=== PATIENT | female | born 1985 | race Caucasian/White ===

== ENCOUNTER 2018-04-05 22:51 | Emergency (ER) | payer MEDICAID ==
[~2018-04-05] VITALS: Ht 162.6 cm; Wt 104.8 kg
[~2018-04-05 22:51] MED LIST: ALBU8.5H8 INH; CLIN150C98 PO; IBUP-1986 PO; METO50TA17 PO; OXCA150T5 PO; OXCA300T4 PO
[2018-04-05 23:46] LABS: BASOPHILS % (AUTO) 0.2 % (0-1); EOSINOPHILS # (AUTO) 0.3 X10'3 (0-0.9); EOSINOPHILS % (AUTO) 4.5 % (0-6); HEMATOCRIT 43.5 % (35.0-45.0); HEMOGLOBIN 14.5 g/dl (12.0-16.0); LYMPHOCYTES % (AUTO) 26.3 % (21-51); MEAN CORPUSCULAR HGB CONC 33.3 % (33.0-36.5); MEAN CORPUSCULAR VOLUME 90.1 FL (78-98); MONOCYTES # (AUTO) 0.3 X10'3 (0-0.9); NEUTROPHILS # (AUTO) 4.9 X10'3 (1.8-7.7); PLATELET COUNT 300 X10'3 (140-440); RED BLOOD COUNT 4.83 X10'6 (4.20-5.60); RED CELL DISTRIBUTION WIDTH 14.7 % (11.5-14.5); WHITE BLOOD COUNT 7.6 X10'3 (4.5-11.0)
[2018-04-06 00:04] LABS: ALANINE AMINOTRANSFERASE 22 U/L (12-78); ALBUMIN 3.4 G/DL (3.4-5.0); ALBUMIN/GLOBULIN RATIO 0.9 (1.1-1.5); ALKALINE PHOSPHATASE 90 IU/L (46-116); ANION GAP 10 (8-16); ASPARTATE AMINO TRANSFERASE 15 U/L (10-37); BILIRUBIN,TOTAL 0.2 MG/DL (0.1-1.0); BLOOD UREA NITROGEN 12 MG/DL (7-18); BUN/CREATININE RATIO 14.5 (6.6-38.0); CALCIUM 8.9 MG/DL (8.5-10.1); CHLORIDE 109 MMOL/L (99-107); CREATININE 0.83 MG/DL (0.40-0.90); GLUCOSE 92 MG/DL (70-104); POTASSIUM 3.9 MMOL/L (3.5-5.1); SODIUM 147 MMOL/L (135-145); TOTAL CARBON DIOXIDE 28.1 MMOL/L (24-32); TOTAL PROTEIN 7.3 G/DL (6.4-8.2); eGFR 79 ML/MIN
[2018-04-06 00:05] LABS: ETHANOL 0.074 GM/DL (0.0-0.010)
[2018-04-06] MEDS ORDERED: normal saline 1000ML IV soln IVB ONE (00:05)
[2018-04-06] MEDS ORDERED: naloxone 0.4 mg/ml inj IV PRN (00:10)
[2018-04-06] MEDS ORDERED: haloperidol lactate 5mg/ml inj IM ONE ×2 (00:13→00:15)
[2018-04-06] MEDS ORDERED: diphenhydrAMINE 50 mg/ml inj ONE (00:13)
[2018-04-06] MEDS ORDERED: LORazepam 2 mg/ml vial ONE (00:14)
[2018-04-06] MEDS ORDERED: diphenhydrAMINE 50 mg/ml inj IM ONE (00:15)
[2018-04-06] MEDS ORDERED: LORazepam 2 mg/ml vial IM ONE ×2 (00:15→13:50)
[2018-04-06 00:25] LABS: ACETAMINOPHEN < 2.0 UG/ML (10-30)
[2018-04-06 01:30] LABS: URINE HCG NEGATIVE (NEG)
[2018-04-06 01:32] LABS: CLARITY,URINE CLEAR (Clear); COLOR,URINE YELLOW (Yellow); GLUCOSE, URINE NEGATIVE (Neg); KETONES,URINE NEGATIVE (Neg); LEUKOCYTE ESTERASE ,URINE NEGATIVE (Neg); NITRITES, URINE NEGATIVE (Neg); OCCULT BLOOD,URINE NEGATIVE (Neg); PROTEIN,URINE NEGATIVE (Neg); UROBILINOGEN,URINE 0.2 E.U/dL (0.2-1.0)
[2018-04-06 01:34] LABS: UA COLLECTION TYPE STRAIGHT CATH
[2018-04-06 01:35] LABS: URINE AMPHETAMINE SCREEN POSITIVE (Neg); URINE BARBITUATE SCREEN NEGATIVE (Neg); URINE BENZODIAZEPINES SCREEN POSITIVE (Neg); URINE CANNABINOID SCREEN POSITIVE (Neg); URINE COCAINE SCREEN NEGATIVE (Neg); URINE METHADONE SCREEN NEGATIVE (Neg); URINE OPIATE SCREEN NEGATIVE (Neg); URINE PHENCYCLIDINE SCREEN NEGATIVE (Neg)
[2018-04-06 09:19] LABS: ALBUMIN 2.7 G/DL (3.4-5.0); ANION GAP 7 (8-16); BLOOD UREA NITROGEN 11 MG/DL (7-18); BUN/CREATININE RATIO 13.8 (6.6-38.0); CHLORIDE 111 MMOL/L (99-107); GLUCOSE 155 MG/DL (70-104); POTASSIUM 3.8 MMOL/L (3.5-5.1); SODIUM 144 MMOL/L (135-145); TOTAL CARBON DIOXIDE 25.6 MMOL/L (24-32); eGFR 83 ML/MIN
[2018-04-06] MEDS ORDERED: albuterol 2.5 MG/3 ML nebule NEB PRN (13:55)
[2018-04-07] MEDS ORDERED: LORazepam 1 MG tablet PO ONE (02:25)
[2018-04-07] MEDS ORDERED: ipratropium/albuterol 3ml nebule NEB ONE (02:45)
[2018-04-07] MEDS ORDERED: ipratropium/albuterol 3ml nebule ONE (02:57)
[2018-04-07 07:46] VITALS: BP 121/75
[2018-04-07] MEDS ORDERED: METO-384 PO (10:45)
[2018-04-07] MEDS ORDERED: CLON0.1T20 PO (10:45)
[2018-04-07] MEDS ORDERED: GABA-530 PO (10:45)
[2018-04-07] MEDS ORDERED: TRAZ-146 PO (10:45)
[2018-04-07] MEDS ORDERED: ESCI10TA PO (10:45)
[2018-04-07] MEDS ORDERED: nicotine 7mg patch - 24hr TD SCH (11:40)
[2018-04-07] MEDS ORDERED: metoprolol tartrate 50mg tablet PO SCH (20:00)
[2018-04-07] MEDS ORDERED: cloNIDine 0.1 mg tablet PO SCH (21:00)
[2018-04-07] MEDS ORDERED: traZODone 50mg tablet PO SCH (21:00)
[2018-04-08] MEDS ORDERED: citalopram 20mg tablet PO SCH (08:00)
== END 2018-04-07 14:14 | disposition home or self-care (01) ==
LOC: ER 22:52
DX: R45.851 Suicidal ideations (principal); T50.902A Poisoning by unspecified drugs, medicaments and biological substances, intentional self-harm, initial encounter; F12.10 Cannabis abuse, uncomplicated; F10.129 Alcohol abuse with intoxication, unspecified; F15.10 Other stimulant abuse, uncomplicated; F11.10 Opioid abuse, uncomplicated; I10 Essential (primary) hypertension; F13.90 Sedative, hypnotic, or anxiolytic use, unspecified, uncomplicated; J45.909 Unspecified asthma, uncomplicated; F32.9 Major depressive disorder, single episode, unspecified; Z79.899 Other long term (current) drug therapy; Y92.89 Other specified places as the place of occurrence of the external cause
CPT/HCPCS: 36415; 80048; 80053; 80305; 80320; 80329; 81003; 81025; 85025; 94640; 94760; 96372; 99285; J2060; J1200; J1630

== ENCOUNTER 2018-07-01 09:07 | Emergency (ER) | payer MEDICAID ==
[~2018-07-01] VITALS: Ht 167.6 cm; Wt 102.0 kg
[~2018-07-01 09:07] MED LIST changes: -CLIN150C98 PO; +CLON0.1T20 PO; +ESCI10TA PO; +GABA-530 PO; -IBUP-1986 PO; +METO-384 PO; -METO50TA17 PO; -OXCA150T5 PO; -OXCA300T4 PO; +TRAZ-219 PO
[2018-07-01 09:46] LABS: BASOPHILS % (AUTO) 0.3 % (0-1); EOSINOPHILS # (AUTO) 0.3 X10'3 (0-0.9); EOSINOPHILS % (AUTO) 5.1 % (0-6); HEMATOCRIT 37.5 % (35.0-45.0); HEMOGLOBIN 12.7 g/dl (12.0-16.0); LYMPHOCYTES # (AUTO) 2.5 X10'3 (1.1-4.8); LYMPHOCYTES % (AUTO) 40.9 % (21-51); MEAN CORPUSCULAR HEMOGLOBIN 30.6 PG (27.0-31.0); MEAN CORPUSCULAR HGB CONC 33.9 % (33.0-36.5); MEAN CORPUSCULAR VOLUME 90.2 FL (78-98); MEAN PLATELET VOLUME 8.1 FL (7.4-10.4); MONOCYTES # (AUTO) 0.4 X10'3 (0-0.9); MONOCYTES % (AUTO) 6.8 % (2-12); NEUTROPHILS # (AUTO) 2.8 X10'3 (1.8-7.7); NEUTROPHILS % (AUTO) 46.9 % (42-75); PLATELET COUNT 234 X10'3 (140-440); RED BLOOD COUNT 4.16 X10'6 (4.20-5.60); RED CELL DISTRIBUTION WIDTH 14.1 % (11.5-14.5)
[2018-07-01 09:58] LABS: ALANINE AMINOTRANSFERASE 35 U/L (12-78); ALKALINE PHOSPHATASE 57 IU/L (46-116); ANION GAP 6 (8-16); ASPARTATE AMINO TRANSFERASE 24 U/L (10-37); BILIRUBIN,TOTAL 0.1 MG/DL (0.1-1.0); BLOOD UREA NITROGEN 15 MG/DL (7-18); BUN/CREATININE RATIO 18.5 (6.6-38.0); CHLORIDE 108 MMOL/L (99-107); CREATININE 0.81 MG/DL (0.40-0.90); GLUCOSE 109 MG/DL (70-104); POTASSIUM 3.9 MMOL/L (3.5-5.1); SODIUM 140 MMOL/L (135-145); TOTAL CARBON DIOXIDE 26.4 MMOL/L (24-32); TOTAL PROTEIN 6.1 G/DL (6.4-8.2); eGFR 81 ML/MIN
[2018-07-01 10:00] LABS: ACETAMINOPHEN < 2.0 UG/ML (10-30)
[2018-07-01 10:04] LABS: HCG SERUM QL NEGATIVE
[2018-07-01 10:29] LABS: URINE AMPHETAMINE SCREEN NEGATIVE (Neg); URINE BARBITUATE SCREEN NEGATIVE (Neg); URINE BENZODIAZEPINES SCREEN POSITIVE (Neg); URINE CANNABINOID SCREEN POSITIVE (Neg); URINE COCAINE SCREEN NEGATIVE (Neg); URINE METHADONE SCREEN NEGATIVE (Neg); URINE OPIATE SCREEN POSITIVE (Neg); URINE PHENCYCLIDINE SCREEN NEGATIVE (Neg)
[2018-07-01 10:57] VITALS: BP 114/76
== END 2018-07-01 11:34 | disposition home or self-care (01) ==
LOC: ER 09:07
DX: T40.1X1A Poisoning by heroin, accidental (unintentional), initial encounter (principal); I10 Essential (primary) hypertension; J45.909 Unspecified asthma, uncomplicated; F32.9 Major depressive disorder, single episode, unspecified; Z86.14 Personal history of Methicillin resistant Staphylococcus aureus infection; F12.90 Cannabis use, unspecified, uncomplicated; F15.90 Other stimulant use, unspecified, uncomplicated; F11.90 Opioid use, unspecified, uncomplicated; Z91.018 Allergy to other foods; Z79.899 Other long term (current) drug therapy; Y92.89 Other specified places as the place of occurrence of the external cause
CPT/HCPCS: 36415; 80053; 80305; 80329; 84484; 84703; 85025; 99284; J7030; A4620

== ENCOUNTER 2018-08-08 14:07 | Emergency (ER) | payer MEDICAID ==
[~2018-08-08] VITALS: Ht 578.2 cm; Wt 101.0 kg
[~2018-08-08 14:07] MED LIST changes: +ONDA8TAB13 PO; +PENI500T2 PO
[2018-08-08] MEDS ORDERED: LORazepam 1 MG tablet PO STA (15:26)
[2018-08-08 16:07] LABS: BASOPHILS % (AUTO) 0.3 % (0-1); EOSINOPHILS # (AUTO) 0.2 X10'3 (0-0.9); EOSINOPHILS % (AUTO) 1.6 % (0-6); HEMATOCRIT 45.9 % (35.0-45.0); HEMOGLOBIN 15.4 g/dl (12.0-16.0); LYMPHOCYTES # (AUTO) 2.7 X10'3 (1.1-4.8); LYMPHOCYTES % (AUTO) 27.7 % (21-51); MEAN CORPUSCULAR HEMOGLOBIN 29.6 PG (27.0-31.0); MEAN CORPUSCULAR HGB CONC 33.5 % (33.0-36.5); MEAN CORPUSCULAR VOLUME 88.4 FL (78-98); MEAN PLATELET VOLUME 7.7 FL (7.4-10.4); MONOCYTES # (AUTO) 0.6 X10'3 (0-0.9); MONOCYTES % (AUTO) 6.2 % (2-12); NEUTROPHILS # (AUTO) 6.3 X10'3 (1.8-7.7); NEUTROPHILS % (AUTO) 64.2 % (42-75); PLATELET COUNT 458 X10'3 (140-440); RED BLOOD COUNT 5.19 X10'6 (4.20-5.60); RED CELL DISTRIBUTION WIDTH 13.4 % (11.5-14.5); WHITE BLOOD COUNT 9.8 X10'3 (4.5-11.0)
[2018-08-08 16:30] LABS: ALANINE AMINOTRANSFERASE 17 U/L (12-78); ALBUMIN 4.2 G/DL (3.4-5.0); ALKALINE PHOSPHATASE 84 IU/L (46-116); ANION GAP 13 (8-16); ASPARTATE AMINO TRANSFERASE 15 U/L (10-37); BILIRUBIN,TOTAL 0.3 MG/DL (0.1-1.0); BLOOD UREA NITROGEN 11 MG/DL (7-18); BUN/CREATININE RATIO 12.4 (6.6-38.0); CALCIUM 9.1 MG/DL (8.5-10.1); CHLORIDE 106 MMOL/L (99-107); CREATININE 0.89 MG/DL (0.40-0.90); GLUCOSE 91 MG/DL (70-104); POTASSIUM 3.7 MMOL/L (3.5-5.1); SODIUM 143 MMOL/L (135-145); TOTAL CARBON DIOXIDE 24.2 MMOL/L (24-32); TOTAL PROTEIN 8.4 G/DL (6.4-8.2); eGFR 73 ML/MIN
[2018-08-08 16:31] LABS: ETHANOL 0.125 GM/DL (0.0-0.010)
[2018-08-08 19:23] LABS: URINE HCG NEGATIVE (NEG)
[2018-08-08 19:26] LABS: CLARITY,URINE SLIGHTLY CLOUDY (Clear); COLOR,URINE YELLOW (Yellow); GLUCOSE, URINE NEGATIVE (Neg); KETONES,URINE 15 mg/dl (Neg); LEUKOCYTE ESTERASE ,URINE NEGATIVE (Neg); NITRITES, URINE NEGATIVE (Neg); OCCULT BLOOD,URINE NEGATIVE (Neg); PH,URINE 5.5 (4.8-8.0); PROTEIN,URINE NEGATIVE (Neg); UROBILINOGEN,URINE 0.2 E.U/dL (0.2-1.0)
[2018-08-08 19:34] LABS: URINE AMPHETAMINE SCREEN POSITIVE (Neg); URINE BARBITUATE SCREEN NEGATIVE (Neg); URINE BENZODIAZEPINES SCREEN POSITIVE (Neg); URINE CANNABINOID SCREEN POSITIVE (Neg); URINE COCAINE SCREEN NEGATIVE (Neg); URINE METHADONE SCREEN NEGATIVE (Neg); URINE OPIATE SCREEN POSITIVE (Neg); URINE PHENCYCLIDINE SCREEN NEGATIVE (Neg)
[2018-08-08 19:58] LABS: UA COLLECTION TYPE CLN CATCH MIDSTREAM
[2018-08-08 20:00] LABS: BACTERIA,URINE FEW /HPF (Neg); MUCUS STRANDS MANY /LPF (Neg); RBC,URINE NONE SEEN /HPF (0-2); SQUAMOUS EPITHELIAL CELL,UR MANY /LPF (FEW); WBC,URINE 0-4 /HPF (0-4)
[2018-08-08] MEDS ORDERED: buprenorphine/naloxone 2-0.5mg sublingual tablet SL STA (20:09)
[2018-08-09] MEDS ORDERED: traZODone 50mg tablet PO PRN (05:15)
[2018-08-09] MEDS ORDERED: LORazepam 1 MG tablet PO ONE (05:15)
[2018-08-09] MEDS: cloNIDine 0.1 mg tablet PO PRN ×2 (05:41→11:18)
[2018-08-09] MEDS ORDERED: buprenorphine/naloxone 2-0.5mg sublingual tablet SL ONE (09:10)
[2018-08-09] MEDS: LORazepam 1 MG tablet PO PRN ×2 (12:11→20:55)
[2018-08-09] MEDS ORDERED: CLON-529 PO (12:29)
[2018-08-09] MEDS ORDERED: GABA300C PO (12:29)
[2018-08-09] MEDS ORDERED: traZODone 50mg tablet PO SCH (13:10)
[2018-08-09] MEDS ORDERED: albuterol 2.5 MG/3 ML nebule NEB PRN (13:15)
[2018-08-09] MEDS ORDERED: nicotine 21mg patch - 24 hr TD ONE (13:20)
[2018-08-09] MEDS: metoprolol succinate 25mg (24-HOUR) SR. Tablet PO SCH (20:45)
[2018-08-09] MEDS: cloNIDine 0.1 mg tablet PO SCH (20:46)
[2018-08-09] MEDS: gabapentin 300mg capsule PO SCH (20:46)
[2018-08-10] MEDS: cloNIDine 0.1 mg tablet PO PRN (04:04)
[2018-08-10 05:30] VITALS: BP 102/52
[2018-08-10] MEDS: cloNIDine 0.1 mg tablet PO SCH (08:26)
[2018-08-10] MEDS: metoprolol succinate 25mg (24-HOUR) SR. Tablet PO SCH (08:26)
[2018-08-10] MEDS: gabapentin 300mg capsule PO SCH (08:26)
== END 2018-08-10 12:50 ==
LOC: ER 14:07
DX: F32.9 Major depressive disorder, single episode, unspecified (principal); I10 Essential (primary) hypertension; J45.909 Unspecified asthma, uncomplicated; Z86.14 Personal history of Methicillin resistant Staphylococcus aureus infection; Z98.51 Tubal ligation status; Z98.890 Other specified postprocedural states; F12.90 Cannabis use, unspecified, uncomplicated; F15.90 Other stimulant use, unspecified, uncomplicated; F11.90 Opioid use, unspecified, uncomplicated; Z91.018 Allergy to other foods; Z79.899 Other long term (current) drug therapy
CPT/HCPCS: 36415; 80053; 80305; 80320; 81001; 81025; 84443; 85025; 99285

== ENCOUNTER 2018-11-02 16:26 | Emergency (ER) | payer MEDICAID ==
[~2018-11-02] VITALS: Ht 167.6 cm; Wt 104.6 kg
[~2018-11-02 16:26] MED LIST changes: +CLON-529 PO; -CLON0.1T20 PO; -ESCI10TA PO; -GABA-530 PO; +GABA300C PO; -PENI500T2 PO
[2018-11-02] MEDS ORDERED: ondansetron 4mg rapidly disintigrating tab PO ONE (16:50)
[2018-11-02] MEDS ORDERED: TETanus/Pertussis (Acell)/Diphther VAC/PF (Tdap-Adult) 0.5ml syringe IM ONE (16:50)
[2018-11-02] MEDS ORDERED: HYDROcodone/acetaminophen 10/325mg tab PO ONE (16:50)
[2018-11-02] MEDS ORDERED: piperacillin/tazo 3.375gm/50ml 50 ML IV ONE (16:50)
[2018-11-02] MEDS ORDERED: vancomycin/NS 1 GM ADD-VANTAGE 250 ML IV ONE (16:50)
[2018-11-02] MEDS ORDERED: SULF1TAB49 PO (16:55)
[2018-11-02] MEDS ORDERED: HYDR-3965 PO (16:55)
[2018-11-02] MEDS ORDERED: CEPH-572 PO (16:55)
[2018-11-02] MEDS ORDERED: ONDA4TAB9 PO (16:55)
[2018-11-02 17:26] LABS: BASOPHILS % (AUTO) 0.4 % (0-1); EOSINOPHILS # (AUTO) 0.3 X10'3 (0-0.9); EOSINOPHILS % (AUTO) 2.6 % (0-6); HEMATOCRIT 43.5 % (35.0-45.0); HEMOGLOBIN 14.5 g/dl (12.0-16.0); LYMPHOCYTES # (AUTO) 2.6 X10'3 (1.1-4.8); LYMPHOCYTES % (AUTO) 22.3 % (21-51); MEAN CORPUSCULAR HEMOGLOBIN 29.8 PG (27.0-31.0); MEAN CORPUSCULAR HGB CONC 33.3 % (33.0-36.5); MEAN CORPUSCULAR VOLUME 89.3 FL (78-98); MEAN PLATELET VOLUME 7.9 FL (7.4-10.4); MONOCYTES # (AUTO) 0.6 X10'3 (0-0.9); MONOCYTES % (AUTO) 5.5 % (2-12); NEUTROPHILS # (AUTO) 7.9 X10'3 (1.8-7.7); NEUTROPHILS % (AUTO) 69.2 % (42-75); PLATELET COUNT 336 X10'3 (140-440); RED BLOOD COUNT 4.87 X10'6 (4.20-5.60); RED CELL DISTRIBUTION WIDTH 13.7 % (11.5-14.5); WHITE BLOOD COUNT 11.4 X10'3 (4.5-11.0)
[2018-11-02 17:38] LABS: ALANINE AMINOTRANSFERASE 20 U/L (12-78); ALBUMIN 3.7 G/DL (3.4-5.0); ALBUMIN/GLOBULIN RATIO 0.9 (1.1-1.5); ALKALINE PHOSPHATASE 92 IU/L (46-116); ANION GAP 10 (8-16); ASPARTATE AMINO TRANSFERASE 9 U/L (10-37); BILIRUBIN,TOTAL 0.3 MG/DL (0.1-1.0); BLOOD UREA NITROGEN 16 MG/DL (7-18); C-REACTIVE PROTEIN 5.99 MG/DL (0.0-0.5); CALCIUM 9.1 MG/DL (8.5-10.1); CHLORIDE 104 MMOL/L (99-107); CREATININE 0.89 MG/DL (0.40-0.90); GLUCOSE 101 MG/DL (70-104); POTASSIUM 3.5 MMOL/L (3.5-5.1); SODIUM 142 MMOL/L (135-145); TOTAL CARBON DIOXIDE 27.7 MMOL/L (24-32); TOTAL PROTEIN 7.6 G/DL (6.4-8.2); eGFR 73 ML/MIN
[2018-11-02 19:17] VITALS: BP 160/96
== END 2018-11-02 19:31 | disposition home or self-care (01) ==
LOC: ER 16:26
DX: L03.113 Cellulitis of right upper limb (principal); I10 Essential (primary) hypertension; R23.4 Changes in skin texture; J45.909 Unspecified asthma, uncomplicated; F12.90 Cannabis use, unspecified, uncomplicated; F15.90 Other stimulant use, unspecified, uncomplicated; F11.90 Opioid use, unspecified, uncomplicated; Z91.018 Allergy to other foods; Z98.890 Other specified postprocedural states; Z98.51 Tubal ligation status; Z86.14 Personal history of Methicillin resistant Staphylococcus aureus infection
CPT/HCPCS: 36415; 73080; 80053; 83605; 84145; 85025; 86140; 87040; 90471; 90715; 96365; 96366; 96368; 99284; J2543; J3370

== ENCOUNTER 2018-11-05 14:41 | Inpatient (IN) | payer MEDICAID ==
[~2018-11-05] VITALS: Ht 167.6 cm; Wt 102.0 kg
[~2018-11-05 14:41] MED LIST changes: +CEPH-572 PO; +HYDR-3965 PO; +ONDA4TAB9 PO; +SULF1TAB49 PO
[2018-11-05] MEDS ORDERED: normal saline 1000ml 1,000 ML IV ONE (16:50)
[2018-11-05] MEDS ORDERED: HYDROcodone/acetaminophen 10/325mg tab PO ONE (16:50)
[2018-11-05 16:59] LABS: BASOPHILS % (AUTO) 0.2 % (0-1); EOSINOPHILS # (AUTO) 0.2 X10'3 (0-0.9); EOSINOPHILS % (AUTO) 1.9 % (0-6); HEMATOCRIT 41.7 % (35.0-45.0); HEMOGLOBIN 13.6 g/dl (12.0-16.0); LYMPHOCYTES # (AUTO) 1.8 X10'3 (1.1-4.8); LYMPHOCYTES % (AUTO) 14.2 % (21-51); MEAN CORPUSCULAR HEMOGLOBIN 29.3 PG (27.0-31.0); MEAN CORPUSCULAR HGB CONC 32.6 % (33.0-36.5); MONOCYTES # (AUTO) 0.6 X10'3 (0-0.9); MONOCYTES % (AUTO) 4.7 % (2-12); NEUTROPHILS # (AUTO) 9.9 X10'3 (1.8-7.7); PLATELET COUNT 353 X10'3 (140-440); RED BLOOD COUNT 4.64 X10'6 (4.20-5.60); RED CELL DISTRIBUTION WIDTH 13.7 % (11.5-14.5); WHITE BLOOD COUNT 12.5 X10'3 (4.5-11.0)
[2018-11-05 17:06] LABS: ALANINE AMINOTRANSFERASE 17 U/L (12-78); ALBUMIN 3.5 G/DL (3.4-5.0); ALBUMIN/GLOBULIN RATIO 0.8 (1.1-1.5); ALKALINE PHOSPHATASE 91 IU/L (46-116); ANION GAP 12 (8-16); ASPARTATE AMINO TRANSFERASE 11 U/L (10-37); BILIRUBIN,TOTAL 0.1 MG/DL (0.1-1.0); BLOOD UREA NITROGEN 9 MG/DL (7-18); BUN/CREATININE RATIO 9.8 (6.6-38.0); CALCIUM 8.6 MG/DL (8.5-10.1); CHLORIDE 102 MMOL/L (99-107); CREATININE 0.92 MG/DL (0.40-0.90); GLUCOSE 83 MG/DL (70-104); POTASSIUM 3.8 MMOL/L (3.5-5.1); SODIUM 138 MMOL/L (135-145); TOTAL CARBON DIOXIDE 24.5 MMOL/L (24-32); TOTAL PROTEIN 7.8 G/DL (6.4-8.2); eGFR 70 ML/MIN
[2018-11-05 17:21] LABS: INR 0.9 INR; PARTIAL THROMBOPLASTIN TIME 29 SECONDS (22-32); PROTHROMBIN TIME 9.5 SECONDS (9.0-12.0)
[2018-11-05] MEDS ORDERED: HYDROmorphone 1 mg/ml syringe IV PRN (17:25)
[2018-11-05] MEDS ORDERED: CefTRIAXone inj 250 MG in normal saline 50ml IV soln 50 ML IV ONE (17:25)
[2018-11-05] MEDS ORDERED: ondansetron/PF 4mg/2ml inj IV PRN (17:25)
[2018-11-05] MEDS ORDERED: magnesium hydroxide 30ml (MOM) UD suspension PO PRN (17:25)
[2018-11-05] MEDS ORDERED: HYDROcodone/acetaminophen 5mg/325mg tablet PO PRN (17:25)
[2018-11-05] MEDS ORDERED: mag hydrox/Alum hydrox/simeth 30ml oral suspension PO PRN (17:25)
[2018-11-05] MEDS ORDERED: acetaminophen 325mg tablet PO PRN ×2 (17:25)
[2018-11-05] MEDS ORDERED: nicotine 21mg patch - 24 hr TD ONE (17:30)
[2018-11-05] MEDS ORDERED: vancomycin inj 1,250 MG in normal saline 250ml IV soln 250 ML IV ONE (17:35)
[2018-11-05 18:24] LABS: CLARITY,URINE SLIGHTLY CLOUDY (Clear); COLOR,URINE YELLOW (Yellow); GLUCOSE, URINE NEGATIVE (Neg); KETONES,URINE NEGATIVE (Neg); LEUKOCYTE ESTERASE ,URINE NEGATIVE (Neg); NITRITES, URINE NEGATIVE (Neg); OCCULT BLOOD,URINE TRACE-INTACT (Neg); PH,URINE 6.5 (4.8-8.0); PROTEIN,URINE NEGATIVE (Neg); UROBILINOGEN,URINE 0.2 E.U/dL (0.2-1.0)
[2018-11-05 18:25] LABS: URINE HCG NEGATIVE (NEG)
[2018-11-05 18:26] LABS: UA COLLECTION TYPE CLN CATCH MIDSTREAM
[2018-11-05] MEDS: HYDROmorphone 1 mg/ml syringe IV PRN ×2 (18:44→22:10)
[2018-11-05 18:45] LABS: BACTERIA,URINE FEW /HPF (Neg); MUCUS STRANDS FEW /LPF (Neg); RBC,URINE 0-2 /HPF (0-2); SQUAMOUS EPITHELIAL CELL,UR MANY /LPF (FEW); WBC,URINE 0-4 /HPF (0-4)
[2018-11-05] MEDS ORDERED: vancomycin/NS 1 GM ADD-VANTAGE 250 ML IV SCH (20:00)
[2018-11-05] MEDS: HYDROcodone/acetaminophen 10/325mg tab PO PRN (20:31)
[2018-11-05] MEDS ORDERED: gabapentin 400mg capsule PO SCH (22:25)
[2018-11-05] MEDS ORDERED: gabapentin 300mg capsule PO ONE (22:40)
[2018-11-05] MEDS: traZODone 50mg tablet PO SCH (22:44)
[2018-11-06] MEDS: HYDROcodone/acetaminophen 10/325mg tab PO PRN ×5 (00:22→21:54)
[2018-11-06] MEDS: HYDROmorphone 1 mg/ml syringe IV PRN ×5 (02:21→19:23)
[2018-11-06] MEDS ORDERED: vancomycin inj 1,250 MG in normal saline 250ml IV soln 250 ML IV SCH (03:00)
[2018-11-06 07:50] LABS: BASOPHILS % (AUTO) 0.4 % (0-1); EOSINOPHILS # (AUTO) 0.3 X10'3 (0-0.9); EOSINOPHILS % (AUTO) 3.8 % (0-6); HEMATOCRIT 35.9 % (35.0-45.0); HEMOGLOBIN 12.2 g/dl (12.0-16.0); LYMPHOCYTES % (AUTO) 23.2 % (21-51); MEAN CORPUSCULAR HEMOGLOBIN 30.3 PG (27.0-31.0); MEAN CORPUSCULAR HGB CONC 34.1 % (33.0-36.5); MEAN CORPUSCULAR VOLUME 88.9 FL (78-98); MEAN PLATELET VOLUME 7.7 FL (7.4-10.4); MONOCYTES # (AUTO) 0.5 X10'3 (0-0.9); MONOCYTES % (AUTO) 6.4 % (2-12); NEUTROPHILS # (AUTO) 5.7 X10'3 (1.8-7.7); NEUTROPHILS % (AUTO) 66.2 % (42-75); PLATELET COUNT 297 X10'3 (140-440); RED BLOOD COUNT 4.04 X10'6 (4.20-5.60); RED CELL DISTRIBUTION WIDTH 13.6 % (11.5-14.5); WHITE BLOOD COUNT 8.6 X10'3 (4.5-11.0)
[2018-11-06 08:11] LABS: ALBUMIN 2.8 G/DL (3.4-5.0); ANION GAP 10 (8-16); BLOOD UREA NITROGEN 9 MG/DL (7-18); BUN/CREATININE RATIO 12.3 (6.6-38.0); CALCIUM 8.2 MG/DL (8.5-10.1); CHLORIDE 105 MMOL/L (99-107); CREATININE 0.73 MG/DL (0.40-0.90); GLUCOSE 86 MG/DL (70-104); POTASSIUM 3.6 MMOL/L (3.5-5.1); SODIUM 138 MMOL/L (135-145); eGFR > 90 ML/MIN
[2018-11-06] MEDS: enoxaparin 40mg/0.4ml syringe SUBCUT SCH (08:17)
[2018-11-06] MEDS: gabapentin 300mg capsule PO SCH ×5 (08:17→21:54)
[2018-11-06] MEDS ORDERED: albuterol 2.5 MG/3 ML nebule NEB PRN (10:00)
[2018-11-06] MEDS: piperacillin/tazo 3.375gm/50ml 50 ML IV SCH ×3 (10:29→19:16)
[2018-11-06 14:37] VITALS: BP 137/74
[2018-11-06 18:00] VITALS: BP 143/92
[2018-11-06] MEDS ORDERED: iohexol 300mg/ml 100ml inj. ONE (18:13)
[2018-11-06] MEDS: traZODone 50mg tablet PO SCH ×2 (20:58→21:00)
[2018-11-06 22:00] VITALS: BP 114/73
[2018-11-07] MEDS: HYDROmorphone 1 mg/ml syringe IV PRN ×6 (00:04→23:03)
[2018-11-07] MEDS: piperacillin/tazo 3.375gm/50ml 50 ML IV SCH ×4 (01:48→18:57)
[2018-11-07] MEDS: HYDROcodone/acetaminophen 10/325mg tab PO PRN ×4 (01:55→21:14)
[2018-11-07 06:59] LABS: BASOPHILS % (AUTO) 0.3 % (0-1); EOSINOPHILS # (AUTO) 0.4 X10'3 (0-0.9); EOSINOPHILS % (AUTO) 4.7 % (0-6); HEMATOCRIT 33.5 % (35.0-45.0); HEMOGLOBIN 11.3 g/dl (12.0-16.0); LYMPHOCYTES # (AUTO) 2.2 X10'3 (1.1-4.8); LYMPHOCYTES % (AUTO) 28.4 % (21-51); MEAN CORPUSCULAR HEMOGLOBIN 29.8 PG (27.0-31.0); MEAN CORPUSCULAR HGB CONC 33.7 % (33.0-36.5); MEAN CORPUSCULAR VOLUME 88.5 FL (78-98); MEAN PLATELET VOLUME 7.8 FL (7.4-10.4); MONOCYTES # (AUTO) 0.5 X10'3 (0-0.9); MONOCYTES % (AUTO) 6.7 % (2-12); NEUTROPHILS # (AUTO) 4.6 X10'3 (1.8-7.7); NEUTROPHILS % (AUTO) 59.9 % (42-75); PLATELET COUNT 268 X10'3 (140-440); RED BLOOD COUNT 3.79 X10'6 (4.20-5.60); RED CELL DISTRIBUTION WIDTH 14.1 % (11.5-14.5); WHITE BLOOD COUNT 7.7 X10'3 (4.5-11.0)
[2018-11-07 07:24] LABS: ALBUMIN 2.4 G/DL (3.4-5.0); ANION GAP 9 (8-16); BLOOD UREA NITROGEN 15 MG/DL (7-18); BUN/CREATININE RATIO 16.1 (6.6-38.0); CHLORIDE 108 MMOL/L (99-107); CREATININE 0.93 MG/DL (0.40-0.90); GLUCOSE 119 MG/DL (70-104); POTASSIUM 4.2 MMOL/L (3.5-5.1); SODIUM 141 MMOL/L (135-145); TOTAL CARBON DIOXIDE 24.5 MMOL/L (24-32); eGFR 69 ML/MIN
[2018-11-07] MEDS: gabapentin 300mg capsule PO SCH ×6 (08:00→21:14)
[2018-11-07] MEDS: enoxaparin 40mg/0.4ml syringe SUBCUT SCH (08:55)
[2018-11-07] MEDS: nicotine 21mg patch - 24 hr TD SCH (08:56)
[2018-11-07 09:54] LABS: URINE AMPHETAMINE SCREEN POSITIVE (Neg); URINE BARBITUATE SCREEN NEGATIVE (Neg); URINE BENZODIAZEPINES SCREEN POSITIVE (Neg); URINE CANNABINOID SCREEN POSITIVE (Neg); URINE COCAINE SCREEN NEGATIVE (Neg); URINE METHADONE SCREEN NEGATIVE (Neg); URINE OPIATE SCREEN POSITIVE (Neg); URINE PHENCYCLIDINE SCREEN NEGATIVE (Neg)
[2018-11-07] MEDS ORDERED: VANCOMYCIN LEVEL IV ONE (10:30)
[2018-11-07 10:57] VITALS: BP 144/92
[2018-11-07 18:00] VITALS: BP 132/73
[2018-11-07] MEDS: vancomycin inj 1,250 MG in normal saline 250ml IV soln 250 ML IV SCH (18:58)
[2018-11-07] MEDS: traZODone 50mg tablet PO SCH ×2 (21:00→21:14)
[2018-11-07] MEDS: lactobacillus rhamnosus 10,000 MMU CELLS/CAPSULE PO SCH (21:16)
[2018-11-07 22:00] VITALS: BP 134/80
[2018-11-08] MEDS: piperacillin/tazo 3.375gm/50ml 50 ML IV SCH ×4 (02:11→19:49)
[2018-11-08] MEDS: vancomycin inj 1,250 MG in normal saline 250ml IV soln 250 ML IV SCH ×3 (02:12→19:45)
[2018-11-08] MEDS: HYDROcodone/acetaminophen 10/325mg tab PO PRN ×4 (02:13→21:56)
[2018-11-08] MEDS: HYDROmorphone 1 mg/ml syringe IV PRN ×3 (05:12→19:45)
[2018-11-08 06:00] VITALS: BP 135/88
[2018-11-08 06:55] LABS: ALBUMIN 2.5 G/DL (3.4-5.0); ANION GAP 8 (8-16); BLOOD UREA NITROGEN 17 MG/DL (7-18); BUN/CREATININE RATIO 19.3 (6.6-38.0); CALCIUM 8.5 MG/DL (8.5-10.1); CHLORIDE 106 MMOL/L (99-107); CREATININE 0.88 MG/DL (0.40-0.90); GLUCOSE 91 MG/DL (70-104); POTASSIUM 4.1 MMOL/L (3.5-5.1); SODIUM 140 MMOL/L (135-145); TOTAL CARBON DIOXIDE 26.1 MMOL/L (24-32); eGFR 74 ML/MIN
[2018-11-08 07:06] LABS: BASOPHILS % (AUTO) 0.4 % (0-1); EOSINOPHILS # (AUTO) 0.4 X10'3 (0-0.9); EOSINOPHILS % (AUTO) 5.9 % (0-6); HEMATOCRIT 34.7 % (35.0-45.0); HEMOGLOBIN 11.8 g/dl (12.0-16.0); LYMPHOCYTES # (AUTO) 2.5 X10'3 (1.1-4.8); LYMPHOCYTES % (AUTO) 36.4 % (21-51); MEAN CORPUSCULAR HEMOGLOBIN 30.3 PG (27.0-31.0); MEAN CORPUSCULAR HGB CONC 33.9 % (33.0-36.5); MEAN CORPUSCULAR VOLUME 89.3 FL (78-98); MEAN PLATELET VOLUME 7.7 FL (7.4-10.4); MONOCYTES # (AUTO) 0.4 X10'3 (0-0.9); MONOCYTES % (AUTO) 6.4 % (2-12); NEUTROPHILS # (AUTO) 3.5 X10'3 (1.8-7.7); NEUTROPHILS % (AUTO) 50.9 % (42-75); PLATELET COUNT 308 X10'3 (140-440); RED BLOOD COUNT 3.89 X10'6 (4.20-5.60); RED CELL DISTRIBUTION WIDTH 13.7 % (11.5-14.5); WHITE BLOOD COUNT 6.9 X10'3 (4.5-11.0)
[2018-11-08] MEDS: gabapentin 300mg capsule PO SCH ×4 (07:30→20:31)
[2018-11-08] MEDS: enoxaparin 40mg/0.4ml syringe SUBCUT SCH (07:31)
[2018-11-08] MEDS: lactobacillus rhamnosus 10,000 MMU CELLS/CAPSULE PO SCH ×2 (07:33→19:45)
[2018-11-08] MEDS: nicotine 21mg patch - 24 hr TD SCH (07:34)
[2018-11-08 10:00] VITALS: BP 136/77
[2018-11-08] MEDS ORDERED: ringers solution, lacted 1,000 ML IV ONE (12:52)
[2018-11-08 18:00] VITALS: BP 147/90
[2018-11-08] MEDS ORDERED: VANCOMYCIN LEVEL IV ONE (18:30)
[2018-11-08] MEDS: traZODone 50mg tablet PO SCH ×2 (20:31→21:00)
[2018-11-08 22:00] VITALS: BP 122/55
[2018-11-09] VITALS (15 sets, daily range): BP systolic 123–150; BP diastolic 65–100
[2018-11-09] MEDS: piperacillin/tazo 3.375gm/50ml 50 ML IV SCH ×4 (01:25→20:00)
[2018-11-09] MEDS: vancomycin inj 1,250 MG in normal saline 250ml IV soln 250 ML IV SCH (02:21)
[2018-11-09] MEDS: HYDROmorphone 1 mg/ml syringe IV PRN (03:19)
[2018-11-09] MEDS ORDERED: famotidine 20mg tablet PO ONE (06:00)
[2018-11-09] MEDS: HYDROcodone/acetaminophen 10/325mg tab PO PRN ×5 (06:21→22:53)
[2018-11-09 06:52] LABS: BASOPHILS % (AUTO) 0.4 % (0-1); EOSINOPHILS # (AUTO) 0.4 X10'3 (0-0.9); EOSINOPHILS % (AUTO) 5.8 % (0-6); HEMATOCRIT 35.4 % (35.0-45.0); HEMOGLOBIN 11.7 g/dl (12.0-16.0); LYMPHOCYTES # (AUTO) 2.3 X10'3 (1.1-4.8); LYMPHOCYTES % (AUTO) 34.4 % (21-51); MEAN CORPUSCULAR HEMOGLOBIN 29.5 PG (27.0-31.0); MEAN CORPUSCULAR HGB CONC 33.1 % (33.0-36.5); MEAN CORPUSCULAR VOLUME 89.1 FL (78-98); MEAN PLATELET VOLUME 7.4 FL (7.4-10.4); MONOCYTES # (AUTO) 0.4 X10'3 (0-0.9); NEUTROPHILS # (AUTO) 3.6 X10'3 (1.8-7.7); NEUTROPHILS % (AUTO) 53.4 % (42-75); PLATELET COUNT 341 X10'3 (140-440); RED BLOOD COUNT 3.98 X10'6 (4.20-5.60); RED CELL DISTRIBUTION WIDTH 13.6 % (11.5-14.5); WHITE BLOOD COUNT 6.8 X10'3 (4.5-11.0)
[2018-11-09 07:08] LABS: ALBUMIN 2.7 G/DL (3.4-5.0); ANION GAP 9 (8-16); BLOOD UREA NITROGEN 15 MG/DL (7-18); BUN/CREATININE RATIO 19.5 (6.6-38.0); CALCIUM 8.5 MG/DL (8.5-10.1); CHLORIDE 106 MMOL/L (99-107); CREATININE 0.77 MG/DL (0.40-0.90); GLUCOSE 98 MG/DL (70-104); SODIUM 140 MMOL/L (135-145); TOTAL CARBON DIOXIDE 25.3 MMOL/L (24-32); eGFR 86 ML/MIN
[2018-11-09] MEDS: enoxaparin 40mg/0.4ml syringe SUBCUT SCH (07:11)
[2018-11-09] MEDS: lactobacillus rhamnosus 10,000 MMU CELLS/CAPSULE PO SCH ×2 (07:11→19:51)
[2018-11-09] MEDS: gabapentin 300mg capsule PO SCH ×3 (07:11→22:53)
[2018-11-09] MEDS: nicotine 21mg patch - 24 hr TD SCH (07:17)
[2018-11-09] MEDS ORDERED: sevoflurane 250ml liquid IH ONE (07:50)
[2018-11-09] MEDS ORDERED: dexamethasone sod phosphate 10mg/ml inj ONE (07:50)
[2018-11-09] MEDS ORDERED: ondansetron/PF 4mg/2ml inj ONE (07:50)
[2018-11-09] MEDS ORDERED: glycopyrrolate 0.2mg/ml inj ONE (07:50)
[2018-11-09] MEDS ORDERED: fentaNYL/PF 50MCG/1 ML 2ML syringe ONE (07:56)
[2018-11-09] MEDS ORDERED: propofol inj 20 ML IV ONE (07:57)
[2018-11-09] MEDS ORDERED: LIDOcaine 2% (20mg/ml) 5ml vial ONE (07:57)
[2018-11-09] MEDS ORDERED: MIDAZolam 5mg/5ml vial ONE (07:57)
[2018-11-09] MEDS ORDERED: ringers solution, lacted 1,000 ML IV SCH (08:19)
[2018-11-09] MEDS ORDERED: hydrALAZINE 20mg/ml inj. IV PRN (08:20)
[2018-11-09] MEDS ORDERED: labetalol 20mg/4ml (5mg/ml) syringe IV PRN (08:20)
[2018-11-09] MEDS ORDERED: fentaNYL/PF 50MCG/1 ML 2ML syringe IV PRN (08:20)
[2018-11-09] MEDS ORDERED: ondansetron/PF 4mg/2ml inj IV PRN (08:20)
[2018-11-09] MEDS ORDERED: morphine 4 MG/ML inj SYRINge IV PRN ×2 (08:20)
[2018-11-09] MEDS: fentaNYL/PF 50MCG/1 ML 2ML syringe IV PRN ×2 (08:40→08:50)
[2018-11-09] MEDS: LORazepam 1 MG tablet PO PRN ×2 (13:03→19:02)
[2018-11-09] MEDS ORDERED: amLODIPine 5mg tablet PO ONE (16:30)
[2018-11-09] MEDS: traZODone 50mg tablet PO SCH ×2 (19:51→21:00)
[2018-11-10] MEDS: piperacillin/tazo 3.375gm/50ml 50 ML IV SCH ×2 (01:50→08:21)
[2018-11-10] MEDS: HYDROcodone/acetaminophen 10/325mg tab PO PRN ×2 (03:32→08:24)
[2018-11-10 05:00] VITALS: BP 134/62
[2018-11-10 06:00] VITALS: BP 134/62
[2018-11-10 07:08] LABS: BASOPHILS % (AUTO) 0.2 % (0-1); EOSINOPHILS # (AUTO) 0.1 X10'3 (0-0.9); EOSINOPHILS % (AUTO) 1.2 % (0-6); HEMATOCRIT 35.3 % (35.0-45.0); HEMOGLOBIN 11.8 g/dl (12.0-16.0); LYMPHOCYTES # (AUTO) 2.5 X10'3 (1.1-4.8); LYMPHOCYTES % (AUTO) 20.9 % (21-51); MEAN CORPUSCULAR HEMOGLOBIN 29.7 PG (27.0-31.0); MEAN CORPUSCULAR HGB CONC 33.3 % (33.0-36.5); MEAN CORPUSCULAR VOLUME 89.3 FL (78-98); MEAN PLATELET VOLUME 7.6 FL (7.4-10.4); MONOCYTES # (AUTO) 0.7 X10'3 (0-0.9); MONOCYTES % (AUTO) 5.6 % (2-12); NEUTROPHILS # (AUTO) 8.5 X10'3 (1.8-7.7); NEUTROPHILS % (AUTO) 72.1 % (42-75); PLATELET COUNT 346 X10'3 (140-440); RED BLOOD COUNT 3.95 X10'6 (4.20-5.60); RED CELL DISTRIBUTION WIDTH 13.4 % (11.5-14.5); WHITE BLOOD COUNT 11.8 X10'3 (4.5-11.0)
[2018-11-10 07:25] LABS: ALBUMIN 2.7 G/DL (3.4-5.0); ANION GAP 12 (8-16); BLOOD UREA NITROGEN 15 MG/DL (7-18); CALCIUM 8.8 MG/DL (8.5-10.1); CHLORIDE 107 MMOL/L (99-107); CREATININE 0.79 MG/DL (0.40-0.90); GLUCOSE 111 MG/DL (70-104); POTASSIUM 3.9 MMOL/L (3.5-5.1); SODIUM 140 MMOL/L (135-145); TOTAL CARBON DIOXIDE 21.4 MMOL/L (24-32); eGFR 83 ML/MIN
[2018-11-10] MEDS ORDERED: amLODIPine 5mg tablet PO SCH (08:00)
[2018-11-10] MEDS: nicotine 21mg patch - 24 hr TD SCH (08:22)
[2018-11-10] MEDS: lactobacillus rhamnosus 10,000 MMU CELLS/CAPSULE PO SCH (08:24)
[2018-11-10] MEDS: gabapentin 300mg capsule PO SCH (08:24)
[2018-11-10] MEDS: enoxaparin 40mg/0.4ml syringe SUBCUT SCH (08:25)
[2018-11-10] MEDS ORDERED: VANCOMYCIN LEVEL IV NR (10:30)
== END 2018-11-10 10:45 | disposition left against medical advice (07) | DRG 364 ==
LOC: ER 14:41 → ED HOLD 17:30 → ORTHO 4S 11-06 12:34
PROVIDERS: ADMIT Internal Medicine; ATTEND Family Medicine
PROC: 0J9G0ZZ Drainage of Right Lower Arm Subcutaneous Tissue and Fascia, Open Approach (ICD-10-PCS; principal; 2018-11-09 07:50)
DX: L03.113 Cellulitis of right upper limb (principal); I82.619 Acute embolism and thrombosis of superficial veins of unspecified upper extremity; F12.10 Cannabis abuse, uncomplicated; F15.10 Other stimulant abuse, uncomplicated; F17.210 Nicotine dependence, cigarettes, uncomplicated; I10 Essential (primary) hypertension; J45.909 Unspecified asthma, uncomplicated; L02.413 Cutaneous abscess of right upper limb; F32.9 Major depressive disorder, single episode, unspecified; Z86.14 Personal history of Methicillin resistant Staphylococcus aureus infection; Z88.8 Allergy status to other drugs, medicaments and biological substances; Z79.899 Other long term (current) drug therapy; Z71.6 Tobacco abuse counseling
CPT/HCPCS: 36415; 71045; 73201; 76882; 80048; 80053; 80202; 80305; 81001; 81025; 83605; 83735; 84145; 85025; 85610; 85730; 87040; 87070; 87075; 87077; 87102; 87186; 93005; 93971; 99285; A6449; A7000; G0378; J0696; J1100; J1170; J1650; J2001; J2250; J2405; J2543; J2704; J3010; J3370; J3490; J7030; J7040; J7120; Q9967

== ENCOUNTER 2019-05-05 15:59 | Inpatient (IN) | payer MEDICAID ==
[~2019-05-05] VITALS: Ht 165.1 cm; Wt 108.2 kg
[~2019-05-05 15:59] MED LIST changes: +AMOX-580 PO; -CEPH-572 PO; -CLON-529 PO; -HYDR-3965 PO; -METO-384 PO; -ONDA4TAB9 PO; -SULF1TAB49 PO
[2019-05-05] MEDS ORDERED: acetaminophen 325mg tablet PO STA (16:42)
[2019-05-05] MEDS ORDERED: normal saline 1000ML IV soln IV ONE (16:45)
[2019-05-05 17:09] LABS: URINE HCG NEGATIVE (NEG)
[2019-05-05] MEDS ORDERED: ketorolac trometh. 30mg/ml inj. IV ONE (17:55)
[2019-05-05] MEDS ORDERED: iohexol 300mg/ml 100ml inj. ONE (18:01)
[2019-05-05] MEDS ORDERED: HYDROcodone/acetaminophen 5mg/325mg tablet PO ONE (18:45)
--- NOTE | 2019-05-05 18:49 | NUR ---
LAB IS A BEDSIDE.
--- NOTE | 2019-05-05 18:58 | NUR ---
PER PA BURN OK TO DO CT WITHOUT CONTRAST, ROM IN CT NOTIFIED.
--- NOTE | 2019-05-05 18:59 | NUR ---
LAB AT BEDSIDE WAS ABLE TO DRAW 1 LLUE TOP CULTURE, UNABLE TO DRAW OTHER LABS AT THIS TIME, ARAVIND TRUONG NOTIFIED.
--- NOTE | 2019-05-05 19:00 | NUR ---
OK PER PA BURN TO START ANTIBIOTICS WITHOUT HAVING BLOOD CULTURES.
[2019-05-05 19:58] LABS: BASOPHILS # (AUTO) 0.1 X10'3 (0-0.2); BASOPHILS % (AUTO) 0.5 % (0-1); EOSINOPHILS # (AUTO) 0.2 X10'3 (0-0.9); EOSINOPHILS % (AUTO) 1.7 % (0-6); HEMATOCRIT 34.8 % (35.0-45.0); HEMOGLOBIN 11.9 g/dl (12.0-16.0); LYMPHOCYTES # (AUTO) 2.6 X10'3 (1.1-4.8); LYMPHOCYTES % (AUTO) 23.1 % (21-51); MEAN CORPUSCULAR HEMOGLOBIN 30.4 PG (27.0-31.0); MEAN CORPUSCULAR HGB CONC 34.2 g/dL (33.0-36.5); MEAN CORPUSCULAR VOLUME 88.9 FL (78-98); MEAN PLATELET VOLUME 7.9 FL (7.4-10.4); MONOCYTES # (AUTO) 0.9 X10'3 (0-0.9); MONOCYTES % (AUTO) 7.7 % (2-12); NEUTROPHILS # (AUTO) 7.4 X10'3 (1.8-7.7); PLATELET COUNT 280 X10'3 (140-440); RED BLOOD COUNT 3.91 X10'6 (4.20-5.60); RED CELL DISTRIBUTION WIDTH 13.9 % (11.5-14.5); WHITE BLOOD COUNT 11.1 X10'3 (4.5-11.0)
[2019-05-05] MEDS: vancomycin/NS 1 GM ADD-VANTAGE 250 ML IV SCH ×2 (20:02→21:50)
[2019-05-05] MEDS ORDERED: hydrOXYzine 25 MG tablet PO ONE (20:05)
[2019-05-05 20:11] LABS: ALANINE AMINOTRANSFERASE 24 U/L (12-78); ALBUMIN 3.1 G/DL (3.4-5.0); ALBUMIN/GLOBULIN RATIO 0.9 (1.1-1.5); ALKALINE PHOSPHATASE 66 IU/L (46-116); ANION GAP 8 (8-16); ASPARTATE AMINO TRANSFERASE 16 U/L (10-37); BILIRUBIN,TOTAL 0.1 MG/DL (0.1-1.0); BLOOD UREA NITROGEN 14 MG/DL (7-18); CALCIUM 7.9 MG/DL (8.5-10.1); CHLORIDE 108 MMOL/L (99-107); GLUCOSE 83 MG/DL (70-104); SODIUM 137 MMOL/L (135-145); TOTAL CARBON DIOXIDE 20.7 MMOL/L (24-32); TOTAL PROTEIN 6.6 G/DL (6.4-8.2); eGFR > 90 ML/MIN
[2019-05-05 20:13] LABS: POTASSIUM 3.6 MMOL/L (3.5-5.1)
--- NOTE | 2019-05-05 20:23 | NUR ---
Patient tearful and anxious. Patient had edema to right antecubital/elbow area with redness. Patient is anxious and RN gave patient Atarax for anxiety. Patient has a second dose of Vancomycin due after first dose. RN gave patient warm blanket and dimmed the lights. Continue to monitor.
[2019-05-05] MEDS ORDERED: temazepam 15mg capsule PO PRN (21:00)
[2019-05-05] MEDS ORDERED: morphine 4 MG/ML inj SYRINge IV ONE (21:20)
[2019-05-05] MEDS ORDERED: TETanus/Pertussis (Acell)/Diphther VAC/PF (Tdap-Adult) 0.5ml syringe IM ONE (21:25)
[2019-05-05] MEDS ORDERED: METO50TA7 PO (21:59)
[2019-05-05] MEDS ORDERED: LORA0.5T PO (21:59)
[2019-05-05] MEDS ORDERED: LORA1TAB PO (21:59)
[2019-05-05] MEDS ORDERED: LAMO100T89 PO (21:59)
[2019-05-05] MEDS ORDERED: normal saline 1000ml 1,000 ML IV SCH (22:03)
[2019-05-05] MEDS ORDERED: magnesium Cl slow-release 64mg tablet PO PRN (22:05)
[2019-05-05] MEDS ORDERED: mag hydrox/Alum hydrox/simeth 30ml oral suspension PO PRN (22:05)
[2019-05-05] MEDS ORDERED: ondansetron/PF 4mg/2ml inj IV PRN (22:05)
[2019-05-05] MEDS ORDERED: metoclopramide 5 mg/ml inj IV PRN (22:05)
[2019-05-05] MEDS ORDERED: magnesium 4gm in 100ml NS 100 ML IV PRN (22:05)
[2019-05-05] MEDS ORDERED: potassium Cl 40MEQ/NS 500ml 500 ML IV PRN (22:05)
[2019-05-05] MEDS ORDERED: magnesium hydroxide 30ml (MOM) UD suspension PO PRN (22:05)
[2019-05-05] MEDS ORDERED: bisacodyl 10mg suppository rectal RC PRN (22:05)
[2019-05-05] MEDS ORDERED: acetaminophen 325mg tablet PO PRN ×2 (22:05)
[2019-05-05] MEDS ORDERED: potassium Cl 20 mEq SR tablet PO PRN ×2 (22:05)
[2019-05-05] MEDS ORDERED: potassium CL 10mEq/100ml bag 100 ML IV PRN (22:05)
[2019-05-05] MEDS ORDERED: HYDROmorphone inj. 0.5 MG/0.5 ML DISP.SYRIN IV PRN (22:05)
[2019-05-05] MEDS ORDERED: magnesium 2GM in 50ml NS 50 ML IV PRN (22:05)
[2019-05-05] MEDS ORDERED: HYDROcodone/acetaminophen 5mg/325mg tablet PO PRN (22:05)
[2019-05-05] MEDS ORDERED: nicotine 14mg patch - 24hr TD ONE (22:15)
[2019-05-06] VITALS (12 sets, daily range): BP systolic 104–140; BP diastolic 65–84
[2019-05-06] MEDS: HYDROcodone/acetaminophen 10/325mg tab PO PRN (00:15)
--- NOTE | 2019-05-06 01:01 | NUR ---
Patient in room [facility]. I have received report from Dimple MCCRARY in ED and had the opportunity to ask questions and assume patient care. Pt arrived on the unit at 2350 by wheelchair with no signs of distress. Pictures taken of wounds and put into chart. Pt darted, swabbed and put on isolation for MRSA. Will continue to monitor.
[2019-05-06] MEDS: HYDROmorphone 1 mg/ml syringe IV PRN ×4 (04:22→23:13)
[2019-05-06 05:39] LABS: BASOPHILS % (AUTO) 0.4 % (0-1); EOSINOPHILS # (AUTO) 0.3 X10'3 (0-0.9); EOSINOPHILS % (AUTO) 3.6 % (0-6); HEMATOCRIT 31.9 % (35.0-45.0); HEMOGLOBIN 10.9 g/dl (12.0-16.0); LYMPHOCYTES # (AUTO) 2.3 X10'3 (1.1-4.8); LYMPHOCYTES % (AUTO) 29.1 % (21-51); MEAN CORPUSCULAR HEMOGLOBIN 30.5 PG (27.0-31.0); MEAN CORPUSCULAR HGB CONC 34.1 g/dL (33.0-36.5); MEAN CORPUSCULAR VOLUME 89.4 FL (78-98); MEAN PLATELET VOLUME 7.8 FL (7.4-10.4); MONOCYTES # (AUTO) 0.7 X10'3 (0-0.9); MONOCYTES % (AUTO) 8.4 % (2-12); NEUTROPHILS # (AUTO) 4.7 X10'3 (1.8-7.7); NEUTROPHILS % (AUTO) 58.5 % (42-75); PLATELET COUNT 224 X10'3 (140-440); RED BLOOD COUNT 3.57 X10'6 (4.20-5.60); RED CELL DISTRIBUTION WIDTH 13.8 % (11.5-14.5)
[2019-05-06 06:11] LABS: ALBUMIN 2.6 G/DL (3.4-5.0); ANION GAP 9 (8-16); BLOOD UREA NITROGEN 12 MG/DL (7-18); BUN/CREATININE RATIO 16.4 (6.6-38.0); CALCIUM 7.6 MG/DL (8.5-10.1); CHLORIDE 109 MMOL/L (99-107); CREATININE 0.73 MG/DL (0.40-0.90); GLUCOSE 80 MG/DL (70-104); MAGNESIUM 1.7 MG/DL (1.5-2.4); POTASSIUM 3.5 MMOL/L (3.5-5.1); SODIUM 140 MMOL/L (135-145); TOTAL CARBON DIOXIDE 22.2 MMOL/L (24-32); eGFR > 90 ML/MIN
--- NOTE | 2019-05-06 06:36 | NUR ---
Problems reprioritized. Patient report given, questions answered & plan of care reviewed with Sandy MCCRARY.
[2019-05-06] MEDS ORDERED: non-formulary drug (Albuterol Sulfate (Proair Hfa) 2 PUFFS) INH SCH (08:00)
[2019-05-06] MEDS: K and/or MAG REPLACEMENT MC SCH (08:00)
[2019-05-06] MEDS ORDERED: non-formulary drug (Metoprolol Succinate* (Toprol Xl*) 1 TAB) PO SCH (08:00)
[2019-05-06] MEDS: nicotine 14mg patch - 24hr TD SCH (08:42)
[2019-05-06] MEDS: metoprolol succinate 25mg (24-HOUR) SR. Tablet PO SCH ×2 (08:43→21:05)
[2019-05-06] MEDS: VANCOMYCIN 1,500MG inj. 1,500 MG in normal saline 250ml IV soln 280 ML IV SCH ×2 (08:43→17:02)
[2019-05-06] MEDS: gabapentin 300mg capsule PO SCH ×3 (08:43→21:04)
[2019-05-06] MEDS: lamoTRIgine 100mg tablet PO SCH (08:43)
[2019-05-06] MEDS: albuterol 2.5 MG/3 ML nebule NEB SCH ×2 (10:57→20:54)
[2019-05-06] MEDS ORDERED: ringers solution, lacted 1,000 ML IV SCH (12:28)
[2019-05-06] MEDS ORDERED: ondansetron/PF 4mg/2ml inj IV PRN (12:30)
[2019-05-06] MEDS ORDERED: labetalol 20mg/4ml (5mg/ml) syringe IV PRN (12:30)
[2019-05-06] MEDS ORDERED: fentaNYL/PF 50MCG/1 ML 2ML syringe IV PRN ×2 (12:30)
[2019-05-06] MEDS ORDERED: hydrALAZINE 20mg/ml inj. IV PRN (12:30)
[2019-05-06] MEDS ORDERED: morphine 4 MG/ML inj SYRINge IV PRN ×2 (12:30)
[2019-05-06] MEDS ORDERED: morphine 10mg/ml inj. ONE ×2 (12:31→12:32)
[2019-05-06] MEDS ORDERED: midazolam 2 mg/2 ml injection ONE (12:31)
[2019-05-06] MEDS ORDERED: LIDOcaine 2% (20mg/ml) 5ml vial ONE (12:53)
[2019-05-06] MEDS ORDERED: propofol inj 20 ML IV ONE (12:53)
[2019-05-06] MEDS ORDERED: BUPIVAcaine/PF 2.5mg/ml (0.25%) 10ml vial ONE (12:57)
--- NOTE | 2019-05-06 13:09 | NUR ---
Received from OR via SURGICAL BED , accompanied by Anesthesiologist SONIA and report given by Anesthesiolgist. PATIENT WITH 22G PIV IN LEFT FOOT RUNNING LR AT 100. DENIES PAIN. + CAP REFILL TO FINGERS ON RIGHT HAND AND + RADIAL PULSE PRESENT. PATIENT WITH FRANDY BANDAGE TO RIGHT UE WITH PETER DRAIN UNDER DRESSING. 10L MASK ON WITH 100% SATURATIONS. VSS Addendum: 05/06/19 at 1320 by Adilson Avina RN, RN Amended: Links added.
--- NOTE | 2019-05-06 13:49 | NUR ---
ALL CRITERIA FOR TRANSFER TO THE FLOOR HAS BEEN ACHIEVED. VSS. BED LOW, CALL LIGHT AND VS. SET IN PLACE. RN PRESENT TO ACCEPT CARE. PATIENT RESTING COMFORTABLY IN BED. BELONGINGS SENT WITH PATIENT. DRESSINGS CDI. VSS. SIG OTHER IN ROOM WITH PATIENT. DEMETRA ADAME NOTIFIED PATIENT HAS ARRIVED. Addendum: 05/06/19 at 1414 by Adilson Avina RN, RN Amended: Links added.
--- NOTE | 2019-05-06 17:44 | NUR ---
PT IS POST OF Q3H. SHE REFUSES TO KEEP HER O2 ON .HER SATS ARE IN THE LOW 90'S. EDUCATED PT ON IMPORTANCE X 2
--- NOTE | 2019-05-06 18:14 | NUR ---
RECEIVED REPORT FROM LILY MCCRARY
--- NOTE | 2019-05-06 18:14 | NUR ---
GAVE REPORT TO EDWIN PINEDA RN
--- NOTE | 2019-05-06 18:30 | NUR ---
Patient in room [facility]. I have received report from DEEP MCCRARY and had the opportunity to ask questions and assume patient care.
[2019-05-06] MEDS ORDERED: non-formulary drug (Trazodone HCl 1 TAB) PO SCH (21:00)
[2019-05-06] MEDS: traZODone 50mg tablet PO SCH (21:04)
[2019-05-06] MEDS: lactobacillus rhamnosus 10,000 MMU CELLS/CAPSULE PO SCH (21:05)
[2019-05-06] MEDS ORDERED: Potassium Cl inj 20 MEQ in normal saline 1000ml 1,000 ML IV SCH (22:03)
[2019-05-07] VITALS: BP 135/72
[2019-05-07] MEDS: VANCOMYCIN 1,500MG inj. 1,500 MG in normal saline 250ml IV soln 280 ML IV SCH ×2 (01:54→08:01)
[2019-05-07] MEDS: potassium Cl 20mEq in NS 1,000 ML IV SCH ×3 (01:55→21:22)
[2019-05-07] MEDS: HYDROcodone/acetaminophen 10/325mg tab PO PRN ×5 (06:01→23:54)
--- NOTE | 2019-05-07 06:40 | NUR ---
Problems reprioritized. Patient report given, questions answered & plan of care reviewed with XENA MCCRARY.
--- NOTE | 2019-05-07 06:53 | NUR ---
Patient in room [facility]. I have received report from DEMETRA CHUN and had the opportunity to ask questions and assume patient care.
[2019-05-07 07:05] VITALS: BP 131/76
[2019-05-07] MEDS ORDERED: VANCOMYCIN LEVEL IV ONE (07:30)
[2019-05-07 07:44] LABS: ALBUMIN 2.5 G/DL (3.4-5.0); ANION GAP 7 (8-16); BLOOD UREA NITROGEN 13 MG/DL (7-18); BUN/CREATININE RATIO 17.1 (6.6-38.0); CALCIUM 8.1 MG/DL (8.5-10.1); CHLORIDE 111 MMOL/L (99-107); CREATININE 0.76 MG/DL (0.40-0.90); GLUCOSE 92 MG/DL (70-104); MAGNESIUM 1.9 MG/DL (1.5-2.4); SODIUM 141 MMOL/L (135-145); TOTAL CARBON DIOXIDE 23.4 MMOL/L (24-32); eGFR 87 ML/MIN
[2019-05-07 07:50] LABS: POTASSIUM 4.3 MMOL/L (3.5-5.1)
[2019-05-07] MEDS: gabapentin 300mg capsule PO SCH ×3 (08:00→21:27)
[2019-05-07] MEDS: metoprolol succinate 25mg (24-HOUR) SR. Tablet PO SCH ×2 (08:00→21:27)
[2019-05-07] MEDS: lactobacillus rhamnosus 10,000 MMU CELLS/CAPSULE PO SCH ×2 (08:00→21:27)
[2019-05-07] MEDS: K and/or MAG REPLACEMENT MC SCH (08:00)
[2019-05-07] MEDS: lamoTRIgine 100mg tablet PO SCH (08:01)
[2019-05-07] MEDS: HYDROmorphone 1 mg/ml syringe IV PRN ×4 (08:01→21:29)
[2019-05-07 08:11] LABS: VANCOMYCIN,TROUGH 27.9 UG/ML (6.0-14.0)
[2019-05-07] MEDS: nicotine 14mg patch - 24hr TD SCH (08:13)
--- NOTE | 2019-05-07 08:17 | NUR ---
Dr. Maciel and Pharmacist, Alin, notified of patient's vanco trough of [phone]
[2019-05-07 08:53] LABS: BASOPHILS % (AUTO) 0.4 % (0-1); EOSINOPHILS # (AUTO) 0.4 X10'3 (0-0.9); EOSINOPHILS % (AUTO) 6.2 % (0-6); LYMPHOCYTES % (AUTO) 33.4 % (21-51); MEAN CORPUSCULAR HEMOGLOBIN 30.2 PG (27.0-31.0); MEAN CORPUSCULAR HGB CONC 33.4 g/dL (33.0-36.5); MEAN CORPUSCULAR VOLUME 90.4 FL (78-98); MEAN PLATELET VOLUME 8.2 FL (7.4-10.4); MONOCYTES # (AUTO) 0.4 X10'3 (0-0.9); NEUTROPHILS # (AUTO) 3.3 X10'3 (1.8-7.7); PLATELET COUNT 232 X10'3 (140-440); RED BLOOD COUNT 3.65 X10'6 (4.20-5.60); RED CELL DISTRIBUTION WIDTH 13.8 % (11.5-14.5); WHITE BLOOD COUNT 6.1 X10'3 (4.5-11.0)
[2019-05-07] MEDS: albuterol 2.5 MG/3 ML nebule NEB SCH ×2 (09:00→20:29)
[2019-05-07] MEDS: sulfamethoxazole/trimethoprim DS (800/160mg) tablet PO SCH ×2 (09:28→21:27)
[2019-05-07 12:32] VITALS: BP 154/84
--- NOTE | 2019-05-07 18:38 | NUR ---
Problems reprioritized. Patient report given, questions answered & plan of care reviewed with DEMETRA CHUN.
--- NOTE | 2019-05-07 18:40 | NUR ---
Patient in room [facility]. I have received report from XENA MCCRARY and had the opportunity to ask questions and assume patient care.
[2019-05-07 20:06] VITALS: BP 152/82
[2019-05-07] MEDS: traZODone 50mg tablet PO SCH (21:27)
[2019-05-08] VITALS: BP 121/57
[2019-05-08] MEDS: HYDROmorphone 1 mg/ml syringe IV PRN ×5 (04:16→23:43)
[2019-05-08 05:24] LABS: BASOPHILS % (AUTO) 0.7 % (0-1); EOSINOPHILS # (AUTO) 0.4 X10'3 (0-0.9); EOSINOPHILS % (AUTO) 7.2 % (0-6); HEMATOCRIT 31.3 % (35.0-45.0); LYMPHOCYTES # (AUTO) 2.7 X10'3 (1.1-4.8); LYMPHOCYTES % (AUTO) 46.2 % (21-51); MEAN CORPUSCULAR HEMOGLOBIN 31.4 PG (27.0-31.0); MEAN CORPUSCULAR VOLUME 89.7 FL (78-98); MEAN PLATELET VOLUME 8.3 FL (7.4-10.4); MONOCYTES # (AUTO) 0.5 X10'3 (0-0.9); MONOCYTES % (AUTO) 7.7 % (2-12); NEUTROPHILS # (AUTO) 2.2 X10'3 (1.8-7.7); NEUTROPHILS % (AUTO) 38.2 % (42-75); PLATELET COUNT 259 X10'3 (140-440); RED CELL DISTRIBUTION WIDTH 13.6 % (11.5-14.5); WHITE BLOOD COUNT 5.9 X10'3 (4.5-11.0)
[2019-05-08 06:05] LABS: ALBUMIN 2.5 G/DL (3.4-5.0); ANION GAP 8 (8-16); BLOOD UREA NITROGEN 19 MG/DL (7-18); BUN/CREATININE RATIO 21.6 (6.6-38.0); CALCIUM 8.6 MG/DL (8.5-10.1); CHLORIDE 109 MMOL/L (99-107); CREATININE 0.88 MG/DL (0.40-0.90); GLUCOSE 97 MG/DL (70-104); MAGNESIUM 1.9 MG/DL (1.5-2.4); POTASSIUM 4.2 MMOL/L (3.5-5.1); SODIUM 143 MMOL/L (135-145); TOTAL CARBON DIOXIDE 25.9 MMOL/L (24-32); eGFR 74 ML/MIN
--- NOTE | 2019-05-08 06:28 | NUR ---
Patient in room [facility]. I have received report from DEMETRA CHUN and had the opportunity to ask questions and assume patient care.
--- NOTE | 2019-05-08 06:28 | NUR ---
Problems reprioritized. Patient report given, questions answered & plan of care reviewed with XENA MCCRARY.
[2019-05-08 07:00] VITALS: BP 135/64
[2019-05-08] MEDS: lactobacillus rhamnosus 10,000 MMU CELLS/CAPSULE PO SCH ×2 (07:12→19:27)
[2019-05-08] MEDS: sulfamethoxazole/trimethoprim DS (800/160mg) tablet PO SCH ×2 (07:12→19:27)
[2019-05-08] MEDS: metoprolol succinate 25mg (24-HOUR) SR. Tablet PO SCH ×2 (07:12→19:27)
[2019-05-08] MEDS: gabapentin 300mg capsule PO SCH ×3 (07:12→19:28)
[2019-05-08] MEDS: lamoTRIgine 100mg tablet PO SCH (07:12)
[2019-05-08] MEDS: nicotine 14mg patch - 24hr TD SCH (07:16)
[2019-05-08] MEDS: HYDROcodone/acetaminophen 10/325mg tab PO PRN ×4 (07:18→21:20)
[2019-05-08] MEDS: K and/or MAG REPLACEMENT MC SCH (08:00)
[2019-05-08] MEDS: albuterol 2.5 MG/3 ML nebule NEB SCH (09:00)
[2019-05-08] MEDS: LORazepam 2 mg/ml vial IV PRN ×2 (10:27→19:27)
[2019-05-08 12:16] VITALS: BP 123/72
[2019-05-08] MEDS: potassium Cl 20mEq in NS 1,000 ML IV SCH (13:30)
[2019-05-08] MEDS: ibuprofen tablet 400 MG TABLET PO SCH (16:30)
--- NOTE | 2019-05-08 18:12 | NUR ---
Problems reprioritized. Patient report given, questions answered & plan of care reviewed with DEMETRA CHUN.
--- NOTE | 2019-05-08 18:30 | NUR ---
Patient in room [facility]. I have received report from XENA MCCRARY and had the opportunity to ask questions and assume patient care.
[2019-05-08] MEDS: traZODone 50mg tablet PO SCH (19:27)
[2019-05-08] MEDS ORDERED: albuterol 2.5 MG/3 ML nebule NEB PRN (19:30)
[2019-05-08 20:00] VITALS: BP 143/76
[2019-05-09] VITALS: BP 123/79
[2019-05-09] MEDS: potassium Cl 20mEq in NS 1,000 ML IV SCH (04:11)
[2019-05-09] MEDS: HYDROmorphone 1 mg/ml syringe IV PRN ×3 (04:13→14:20)
[2019-05-09 06:09] LABS: BASOPHILS % (AUTO) 0.5 % (0-1); EOSINOPHILS # (AUTO) 0.4 X10'3 (0-0.9); EOSINOPHILS % (AUTO) 6.3 % (0-6); HEMATOCRIT 32.4 % (35.0-45.0); HEMOGLOBIN 11.2 g/dl (12.0-16.0); LYMPHOCYTES % (AUTO) 47.3 % (21-51); MEAN CORPUSCULAR HEMOGLOBIN 30.8 PG (27.0-31.0); MEAN CORPUSCULAR HGB CONC 34.4 g/dL (33.0-36.5); MEAN CORPUSCULAR VOLUME 89.5 FL (78-98); MEAN PLATELET VOLUME 8.1 FL (7.4-10.4); MONOCYTES # (AUTO) 0.4 X10'3 (0-0.9); NEUTROPHILS # (AUTO) 2.4 X10'3 (1.8-7.7); NEUTROPHILS % (AUTO) 38.9 % (42-75); PLATELET COUNT 283 X10'3 (140-440); RED BLOOD COUNT 3.62 X10'6 (4.20-5.60); RED CELL DISTRIBUTION WIDTH 13.7 % (11.5-14.5); WHITE BLOOD COUNT 6.3 X10'3 (4.5-11.0)
--- NOTE | 2019-05-09 06:30 | NUR ---
Problems reprioritized. Patient report given, questions answered & plan of care reviewed with YANNA MCCRARY.
[2019-05-09 06:33] LABS: ALBUMIN 2.6 G/DL (3.4-5.0); ANION GAP 7 (8-16); BLOOD UREA NITROGEN 22 MG/DL (7-18); BUN/CREATININE RATIO 24.4 (6.6-38.0); CALCIUM 8.5 MG/DL (8.5-10.1); CHLORIDE 108 MMOL/L (99-107); GLUCOSE 82 MG/DL (70-104); MAGNESIUM 1.8 MG/DL (1.5-2.4); POTASSIUM 3.9 MMOL/L (3.5-5.1); SODIUM 141 MMOL/L (135-145); TOTAL CARBON DIOXIDE 25.9 MMOL/L (24-32); eGFR 72 ML/MIN
--- NOTE | 2019-05-09 06:58 | NUR ---
Patient in room [facility]. I have received report from Chloe MCCRARY and had the opportunity to ask questions and assume patient care.
[2019-05-09 07:00] VITALS: BP 112/71
[2019-05-09] MEDS: K and/or MAG REPLACEMENT MC SCH (08:00)
[2019-05-09] MEDS: metoprolol succinate 25mg (24-HOUR) SR. Tablet PO SCH (08:00)
[2019-05-09] MEDS: nicotine 14mg patch - 24hr TD SCH (08:37)
[2019-05-09] MEDS: sulfamethoxazole/trimethoprim DS (800/160mg) tablet PO SCH (08:38)
[2019-05-09] MEDS: lactobacillus rhamnosus 10,000 MMU CELLS/CAPSULE PO SCH (08:38)
[2019-05-09] MEDS: gabapentin 300mg capsule PO SCH ×2 (08:38→12:21)
[2019-05-09] MEDS: lamoTRIgine 100mg tablet PO SCH (08:38)
[2019-05-09] MEDS: ibuprofen tablet 400 MG TABLET PO SCH ×2 (08:38→12:21)
[2019-05-09] MEDS: HYDROcodone/acetaminophen 10/325mg tab PO PRN (10:34)
--- NOTE | 2019-05-09 11:00 | NUR ---
Wound dressing on the right AC changed as per order. Wound was sutured, no foul drainage noted at the site. Patient tolerated the procedure
[2019-05-09] MEDS: LORazepam 2 mg/ml vial IV PRN (12:21)
[2019-05-09] MEDS ORDERED: BACDS PO (14:44)
--- NOTE | 2019-05-09 15:16 | NUR ---
Discharged patient home accompanied by her . Discharge instructions given to patient, patient verbalized understanding of all instructions made. Peripheral IV catheter removed, tip intact. Instructed patient to ensure she has all the belongings with her before leaving. New prescription for Septra called in to [facility] in [facility]
== END 2019-05-09 15:16 | disposition home or self-care (01) | DRG 952 ==
LOC: ER 16:00 → SUR 3N 23:47 → CMPBEDREQ 05-06 00:19
PROVIDERS: ADMIT Family Medicine; ATTEND Internal Medicine
PROC: BP2T1ZZ Computerized Tomography (CT Scan) of Right Upper Extremity using Low Osmolar Contrast (ICD-10-PCS; principal; 2019-05-05)
PROC: 0L950ZZ Drainage of Right Lower Arm and Wrist Tendon, Open Approach (ICD-10-PCS; 2019-05-09)
DX: L03.113 Cellulitis of right upper limb (principal); F11.10 Opioid abuse, uncomplicated; L02.413 Cutaneous abscess of right upper limb; F31.9 Bipolar disorder, unspecified; G40.909 Epilepsy, unspecified, not intractable, without status epilepticus; F41.9 Anxiety disorder, unspecified; F17.210 Nicotine dependence, cigarettes, uncomplicated; F15.10 Other stimulant abuse, uncomplicated; F12.90 Cannabis use, unspecified, uncomplicated; I10 Essential (primary) hypertension; J45.909 Unspecified asthma, uncomplicated; Z79.899 Other long term (current) drug therapy; Z80.0 Family history of malignant neoplasm of digestive organs; Z80.8 Family history of malignant neoplasm of other organs or systems; Z82.3 Family history of stroke; Z85.850 Personal history of malignant neoplasm of thyroid; Z98.891 History of uterine scar from previous surgery; Z86.14 Personal history of Methicillin resistant Staphylococcus aureus infection; Z98.51 Tubal ligation status; Z71.51 Drug abuse counseling and surveillance of drug abuser
CPT/HCPCS: 36415; 73201; 80048; 80053; 80202; 81025; 83605; 83735; 85025; 85610; 87040; 87070; 90715; 93005; 94640; 94760; 96361; 96365; 96366; 96375; 99285; A6222; A6446; A6449; A7000; G0378; J1170; J1885; J2001; J2060; J2250; J2270; J2704; J3370; J3480; J3490; J7030; J7120; Q0177; Q9967

== ENCOUNTER 2019-07-17 11:45 | Emergency (ER) | payer MEDICAID ==
[~2019-07-17] VITALS: Ht 165.1 cm; Wt 104.5 kg
[~2019-07-17 11:45] MED LIST changes: -AMOX-580 PO; +BACDS PO; +LAMO100T89 PO; +LORA0.5T PO; +LORA1TAB PO; +METO50TA7 PO; -ONDA8TAB13 PO
[2019-07-17 11:57] VITALS: BP 127/74
[2019-07-17] MEDS ORDERED: LIDOcaine 1% w/epiNEPHrine 1:200,000 30ml vial IM ONE (14:05)
[2019-07-17] MEDS ORDERED: SULF1TAB49 PO (14:05)
== END 2019-07-17 14:45 | disposition home or self-care (01) ==
LOC: ER 11:45
DX: L02.413 Cutaneous abscess of right upper limb (principal); I10 Essential (primary) hypertension; J45.909 Unspecified asthma, uncomplicated; F32.9 Major depressive disorder, single episode, unspecified; F12.90 Cannabis use, unspecified, uncomplicated; F15.90 Other stimulant use, unspecified, uncomplicated; F11.90 Opioid use, unspecified, uncomplicated; Z86.14 Personal history of Methicillin resistant Staphylococcus aureus infection; Z98.890 Other specified postprocedural states; Z98.51 Tubal ligation status; Z91.018 Allergy to other foods; Z79.899 Other long term (current) drug therapy
CPT/HCPCS: 10060; 99283

== ENCOUNTER 2020-04-03 17:49 | Emergency (ER) | payer MEDICAID ==
[~2020-04-03] VITALS: Ht 167.6 cm; Wt 108.5 kg
[~2020-04-03 17:49] MED LIST changes: +LAMO100T PO; -LAMO100T89 PO; -TRAZ-219 PO; +TRAZ-256 PO
[2020-04-03] MEDS ORDERED: ketorolac tromethamine 15mg/ml inj. IM ONE (18:55)
[2020-04-03 20:07] VITALS: BP 168/110
== END 2020-04-03 20:10 | disposition home or self-care (01) ==
LOC: ER 17:49
DX: S46.911A Strain of unspecified muscle, fascia and tendon at shoulder and upper arm level, right arm, initial encounter (principal); M25.511 Pain in right shoulder; I10 Essential (primary) hypertension; J45.909 Unspecified asthma, uncomplicated; F32.9 Major depressive disorder, single episode, unspecified; F12.90 Cannabis use, unspecified, uncomplicated; F15.90 Other stimulant use, unspecified, uncomplicated; F11.90 Opioid use, unspecified, uncomplicated; Z86.14 Personal history of Methicillin resistant Staphylococcus aureus infection; Z98.890 Other specified postprocedural states; Z98.51 Tubal ligation status; Z88.8 Allergy status to other drugs, medicaments and biological substances; Z79.2 Long term (current) use of antibiotics; Z79.899 Other long term (current) drug therapy; X58.XXXA Exposure to other specified factors, initial encounter; Y93.89 Activity, other specified; Y92.89 Other specified places as the place of occurrence of the external cause; Y99.8 Other external cause status
CPT/HCPCS: 73030; 96372; 99283; J1885